=== PATIENT | male | born 1980 | race Caucasian/White ===

== ENCOUNTER 2017-08-20 17:57 | Emergency (ER) | payer BC ==
[~2017-08-20] VITALS: Ht 182.9 cm; Wt 95.3 kg
[2017-08-20 18:00] VITALS: BP 133/85
[2017-08-20] MEDS ORDERED: LORazepam Inj 2mg/ml 1ml IV ONE ×4 (18:30→23:15)
[2017-08-20 19:20] LABS: HEMATOCRIT 46.7 % (42.0-52.0); HEMOGLOBIN 16.1 G/DL (14.2-18.0); MEAN CORPUSCULAR VOLUME 90 FL (80-99); PLATELET COUNT 136 K/UL (150-450); RED BLOOD COUNT 5.18 M/UL (4.70-6.10)
[2017-08-20 19:38] LABS: ANION GAP 19 mmol/L (5-15); BLOOD UREA NITROGEN 13 mg/dL (7-18); CALCIUM 8.2 MG/DL (8.5-10.1); CARBON DIOXIDE 22 MMOL/L (21-32); CHLORIDE 94 MMOL/L (98-107); CREATININE 1.1 MG/DL (0.55-1.30); POTASSIUM 4.2 MMOL/L (3.5-5.1); SODIUM 135 MMOL/L (136-145)
[2017-08-20 19:45] LABS: ALANINE AMINOTRANSFERASE 169 U/L (12-78); ALBUMIN 4.1 G/DL (3.4-5.0); ALBUMIN/GLOBULIN RATIO 1.1 (1.0-2.7); ALKALINE PHOSPHATASE 138 U/L (46-116); ASPARTATE AMINO TRANSFERASE 240 U/L (15-37); BILIRUBIN,TOTAL 0.7 MG/DL (0.2-1.0)
[2017-08-20 20:00] VITALS: BP 124/106
[2017-08-20 22:00] VITALS: BP 131/83
--- NOTE | 2017-08-20 22:39 | Emergency Room Report ---
History of Present Illness General Chief Complaint: Alcohol Intoxication Source: Patient Present Illness HPI 37-year-old male presents ED for evaluation. Patient brought in by EMS status post EtOH intoxication. Found at home. Neighbor called 911. Patient appears tremulous. Admits to drinking consistently. Patient does not recall any head injury however there is a old laceration to his forehead. Denies any pain. Denies any drug use. Mother called as patient arrived to ED stating that patient is alcoholic and needs help. No other aggravating relieving factors. Denies any other associated symptoms Allergies: Coded Allergies: UNABLE TO ASSESS (Unverified , 08/20/17) Patient History Past Medical History: none Past Surgical History: none Pertinent Family History: none Social History: Reports: alcohol use; Denies: smoking, drug use Immunizations: UTD Reviewed Nursing Documentation: PMH: Agreed; PSxH: Agreed Nursing Documentation-PMH Past Medical History Deferred: Pt Cognitively Impaired Review of Systems All Other Systems: negative except mentioned in HPI Physical Exam Vital Signs Date Time Temp Pulse Resp B/P (MAP) Pulse Ox O2 Delivery O2 Flow Rate FiO2 08/20/17 17:33 98.4 113 18 127/84 97 Nasal Cannula 6.0 98.4 Sp02 EP Interpretation: reviewed, normal General Appearance: no apparent distress, alert, GCS 15, non-toxic Head: normocephalic, atraumatic Eyes: bilateral eye normal inspection, bilateral eye PERRL ENT: hearing grossly normal, normal pharynx, no angioedema, normal voice Neck: full range of motion, supple/symm/no masses Respiratory: chest non-tender, lungs clear, normal breath sounds, speaking full sentences Cardiovascular #1: regular rate, rhythm, no edema Cardiovascular #2: 2+ carotid (R), 2+ carotid (L), 2+ radial (R), 2+ radial (L) , 2+ dorsalis pedis (R), 2+ dorsalis pedis (L) Gastrointestinal: normal bowel sounds, non tender, soft, non-distended, no guarding, no rebound Rectal: deferred Genitourinary: normal inspection, no CVA tenderness Musculoskeletal: back normal, gait/station normal, normal range of motion, non- tender Neurologic: alert, oriented x3, responsive, motor strength/tone normal, sensory intact, speech normal, other - tremulous Psychiatric: judgement/insight normal, memory normal, mood/affect normal, no suicidal/homicidal ideation, anxious Reflexes: 3+ bicep (R), 3+ bicep (L), 3+ tricep (R), 3+ tricep (L), 3+ knee (R) , 3+ knee (L) Skin: normal color, no rash, warm/dry, well hydrated Lymphatic: no adenopathy Medical Decision Making Diagnostic Impression: Primary Impression: Acute alcoholic intoxication Qualified Codes: F10.929 - Alcohol use, unspecified with intoxication, unspecified Additional Impression: Alcohol withdrawal Qualified Codes: F10.230 - Alcohol dependence with withdrawal, uncomplicated ER Course Hospital Course 37-year-old male presents ED complaining of shaking, h/o alcohol abuse Differential diagnoses include: Alcohol intoxication, drug abuse, opioid withdrawal, alcohol withdrawal, dehydration, drug seeking behavior Clinical course Patient placed on stretcher. On groundwater monitoring technician. After initial history and physical I ordered labs, IV fluids, Ativan, CT head Labs reviewed-electrolytes okay, hemoglobin/hematocrit stable, no leukocytosis, alcohol level > 500, LFTS elevated, UTox + BZs CT head negative Patient given multiple rounds of Ativan. remains tremulous. Case discussed with Dr. Gunderson and he agreed to except the patient to his service for further care and support i. I feel this is a highly complex case requiring extensive working including EKG/Rhythm strip, Xray/CT/US, Blood/urine lab work, repeat exams while in ED, and administration of strong opiates/narcotics for pain control, admission to hospital or close patient follow up. Diagnosis - alcohol withdrawal Admitted to telemetry in serious condition Labs Test 08/20/17 18:50 08/20/17 18:55 White Blood Count 13.0 K/UL (4.8-10.8) Red Blood Count 5.18 M/UL (4.70-6.10) Hemoglobin 16.1 G/DL (14.2-18.0) Hematocrit 46.7 % (42.0-52.0) Mean Corpuscular Volume 90 FL (80-99) Mean Corpuscular Hemoglobin 31.2 PG (27.0-31.0) Mean Corpuscular Hemoglobin Concent 34.6 G/DL (32.0-36.0) Red Cell Distribution Width 12.0 % (11.6-14.8) Platelet Count 136 K/UL (150-450) Mean Platelet Volume 7.5 FL (6.5-10.1) Neutrophils (%) (Auto) % (45.0-75.0) Lymphocytes (%) (Auto) % (20.0-45.0) Monocytes (%) (Auto) % (1.0-10.0) Eosinophils (%) (Auto) % (0.0-3.0) Basophils (%) (Auto) % (0.0-2.0) Differential Total Cells Counted 100 Neutrophils % (Manual) 85 % (45-75) Lymphocytes % (Manual) 11 % (20-45) Monocytes % (Manual) 4 % (1-10) Eosinophils % (Manual) 0 % (0-3) Basophils % (Manual) 0 % (0-2) Band Neutrophils 0 % (0-8) Platelet Estimate Decreased Platelet Morphology Normal Red Blood Cell Morphology Normal Sodium Level 135 MMOL/L (136-145) Potassium Level 4.2 MMOL/L (3.5-5.1) Chloride Level 94 MMOL/L (98-107) Carbon Dioxide Level 22 MMOL/L (21-32) Anion Gap 19 mmol/L (5-15) Blood Urea Nitrogen 13 mg/dL (7-18) Creatinine 1.1 MG/DL (0.55-1.30) Estimat Glomerular Filtration Rate > 60 mL/min (>60) Glucose Level 195 MG/DL (74-106) Calcium Level 8.2 MG/DL (8.5-10.1) Total Bilirubin 0.7 MG/DL (0.2-1.0) Aspartate Amino Transf (AST/SGOT) 240 U/L (15-37) Alanine Aminotransferase (ALT/SGPT) 169 U/L (12-78) Alkaline Phosphatase 138 U/L (46-116) Total Protein 7.7 G/DL (6.4-8.2) Albumin 4.1 G/DL (3.4-5.0) Globulin 3.6 g/dL Albumin/Globulin Ratio 1.1 (1.0-2.7) Salicylates Level 3.5 ug/mL (2.8-20) Acetaminophen Level < 2 MCG/ML (10-30) Serum Alcohol 542 mg/dL Urine Opiates Screen Negative (NEGATIVE) Urine Barbiturates Screen Negative (NEGATIVE) Phencyclidine (PCP) Screen Negative (NEGATIVE) Urine Amphetamines Screen Negative (NEGATIVE) Urine Benzodiazepines Screen Positive (NEGATIVE) Urine Cocaine Screen Negative (NEGATIVE) Urine Marijuana (THC) Screen Negative (NEGATIVE) CT/MRI/US Diagnostic Results CT/MRI/US Diagnostic Results : Imaging Test Ordered: CT Head Impression no acute process Last Vital Signs Date Time Temp Pulse Resp B/P (MAP) Pulse Ox O2 Delivery O2 Flow Rate FiO2 08/20/17 17:33 98.4 113 18 127/84 97 Nasal Cannula 6.0 98.4 Status: improved Disposition: ADMITTED INPATIENT Condition: Serious Referrals: NOT CHOSEN IPA/,REFERRING (PCP) Bishop Schwarz MD Aug 20, 2017 22:39
[2017-08-20 23:26] VITALS: BP 132/87
[2017-08-20] MEDS ORDERED: Sodium Chloride 500ML 550 ML IV SCH (23:45)
[2017-08-21] MEDS ORDERED: LORazepam Inj 2mg/ml 1ml IV PRN
[2017-08-21 00:50] VITALS: BP 133/79
[2017-08-21 00:55] VITALS: BP 132/87
--- NOTE | 2017-08-21 10:24 | Diagnostic Imaging Report ---
Indication: Altered mental status Technique: Contiguous 5 mm thick transaxial imaging of the head obtained in a Siemens Sensation [address] scanner. Soft tissue and bone windows generated. Automatic Exposure Control was utilized. Total Dose length Product (DLP): 1404.[address] Dose Index Volume (CTDIvol): 70.38 mGy Comparison: none Findings: The size and configuration of the cortical sulci, basal cisterns, and ventricles are within normal limits for age. There is no mass effect, midline shift, or edema identified. There is no evidence of acute hemorrhage or abnormal intra-axial or extra-axial fluid collections. The bones and soft tissues are unremarkable. Impression: No mass effect, edema or acute bleed. [facility] has communicated the preliminary results to the Emergency Department. Their findings are largely concordant with this report. The CT scanner at [facility] is accredited by the [employer] [place] [employer] and the scans are performed using dose optimization techniques as appropriate to a performed exam including Automatic Exposure control.
== END 2017-08-21 00:55 | disposition left against medical advice (07) ==
LOC: EDBD 17:57 → EMR 18:47
DX: F10.229 Alcohol dependence with intoxication, unspecified (principal); F10.239 Alcohol dependence with withdrawal, unspecified; Y90.8 Blood alcohol level of 240 mg/100 ml or more
CPT/HCPCS: 36415; 70450; 80053; 80307; 85007; 85025; 99284; G0480; 80329

== ENCOUNTER 2017-11-05 21:09 | Emergency (ER) | payer BC ==
[~2017-11-05] VITALS: Ht 172.7 cm; Wt 74.8 kg
--- NOTE | 2017-11-05 21:24 | Emergency Room Report ---
History of Present Illness General Chief Complaint: Alcohol Intoxication Source: Patient (NasriLadarius AREVALO) Present Illness HPI Patient presents with paramedics Patient himself is difficult to arouse History of present illness is limited and obtained mainly from concrete technician report Patient also here with placed apartment Patient had been drinking heavily apparently reported to the family of suicidal thoughts And has been placed on a 5150 I do see previous presentation with alcohol abuse in August There was no reports of active vomiting or diarrhea And otherwise the history continues to be limited currently (Ladarius Best DO) Allergies: Coded Allergies: UNABLE TO ASSESS (Unverified , 08/20/17) Patient History Past Medical History: see triage record Pertinent Family History: none Reviewed Nursing Documentation: PMH: Agreed; PSxH: Agreed (Ladarius Best DO) Nursing Documentation-PMH History Of Psychiatric Problem: Yes (Ladarius Best DO) Review of Systems All Other Systems: negative except mentioned in HPI (Ladarius Best DO) Physical Exam Vital Signs Date Time Temp Pulse Resp B/P (MAP) Pulse Ox O2 Delivery O2 Flow Rate FiO2 11/05/17 21:04 97.8 102 18 122/76 98 Room Air 97.9 Sp02 EP Interpretation: reviewed, normal General Appearance: no apparent distress Head: normocephalic, atraumatic Eyes: bilateral eye PERRL, bilateral eye EOMI ENT: normal pharynx, no angioedema Neck: full range of motion, supple Respiratory: lungs clear Cardiovascular #1: regular rate, rhythm, no edema Gastrointestinal: non tender, soft Musculoskeletal: other - Patient does not follow all commands appropriately however, no obvious focal deficit Neurologic: responsive - 2 physical stimuli maintaining appropriate gag reflex and airway Skin: normal color, no rash Lymphatic: no adenopathy (Ladarius Best DO) Medical Decision Making Diagnostic Impression: Primary Impression: Acute alcoholic intoxication Additional Impression: History of suicidal ideation ER Course Patient presents emergency department today complaining of feeling suicidal. Patient apparently was intoxicated and placed on 5150 by the police. Patient was seen by Dr. Ladarius Contreras and signed out to me for final disposition. I've also evaluated patient. Patient appears to be clinically sober at this time. Patient is demanding be discharged. I informed patient however he is under a 5158 require psychiatric evaluation before he can be discharged. Patient was agreeable did request some Ativan he was given some Ativan and a nicotine patch. Patient was feeling better. Patient then was evaluated by our psychiatrist Dr. Montana. Dr. Montana felt that patient's comments were made while he was intoxicated. Patient is back to baseline not suicidal or homicidal and not in immediate danger to self or others. Therefore patient be discharged. Patient does have partial custody of his children. Dr. Montana will discussed this incident with patient's ex- will also has custody of children to make sure that the patient does not have custody of the children while he was intoxicated. Patient is advised follow-up as an outpatient. Advised him to stop drinking.Patient is advised to follow up with primary doctor in 2-3 days and return the emergency room for any worsening symptoms and as needed. Labs Test 11/05/17 22:10 11/05/17 22:24 White Blood Count 9.2 K/UL (4.8-10.8) Red Blood Count 5.50 M/UL (4.70-6.10) Hemoglobin 16.8 G/DL (14.2-18.0) Hematocrit 48.4 % (42.0-52.0) Mean Corpuscular Volume 88 FL (80-99) Mean Corpuscular Hemoglobin 30.5 PG (27.0-31.0) Mean Corpuscular Hemoglobin Concent 34.7 G/DL (32.0-36.0) Red Cell Distribution Width 10.8 % (11.6-14.8) Platelet Count 213 K/UL (150-450) Mean Platelet Volume 7.1 FL (6.5-10.1) Neutrophils (%) (Auto) 68.9 % (45.0-75.0) Lymphocytes (%) (Auto) 25.3 % (20.0-45.0) Monocytes (%) (Auto) 4.8 % (1.0-10.0) Eosinophils (%) (Auto) 0.5 % (0.0-3.0) Basophils (%) (Auto) 0.5 % (0.0-2.0) Sodium Level 144 MMOL/L (136-145) Potassium Level 3.6 MMOL/L (3.5-5.1) Chloride Level 106 MMOL/L (98-107) Carbon Dioxide Level 27 MMOL/L (21-32) Anion Gap 11 mmol/L (5-15) Blood Urea Nitrogen 11 mg/dL (7-18) Creatinine 1.0 MG/DL (0.55-1.30) Estimat Glomerular Filtration Rate > 60 mL/min (>60) Glucose Level 103 MG/DL (74-106) Calcium Level 8.7 MG/DL (8.5-10.1) Total Bilirubin 1.7 MG/DL (0.2-1.0) Direct Bilirubin 0.3 MG/DL (0.0-0.3) Aspartate Amino Transf (AST/SGOT) 51 U/L (15-37) Alanine Aminotransferase (ALT/SGPT) 72 U/L (12-78) Alkaline Phosphatase 78 U/L (46-116) Total Protein 7.3 G/DL (6.4-8.2) Albumin 4.1 G/DL (3.4-5.0) Globulin 3.2 g/dL Albumin/Globulin Ratio 1.3 (1.0-2.7) Salicylates Level 0.4 ug/mL (2.8-20) Acetaminophen Level < 2 MCG/ML (10-30) Serum Alcohol 300 mg/dL Urine Opiates Screen Negative (NEGATIVE) Urine Barbiturates Screen Negative (NEGATIVE) Phencyclidine (PCP) Screen Negative (NEGATIVE) Urine Amphetamines Screen Negative (NEGATIVE) Urine Benzodiazepines Screen Positive (NEGATIVE) Urine Cocaine Screen Negative (NEGATIVE) Urine Marijuana (THC) Screen Positive (NEGATIVE) (Oliver Berger MD) Last Vital Signs Date Time Temp Pulse Resp B/P (MAP) Pulse Ox O2 Delivery O2 Flow Rate FiO2 11/05/17 21:04 97.8 102 18 122/76 98 Room Air 97.9 (Ladarius Best DO) Status: improved (Oliver Berger MD) Disposition: HOME, SELF-CARE Condition: Stable Ladarius Best DO Nov 05, 2017 21:24 Oliver Berger MD Nov 06, 2017 14:05
[2017-11-05 22:26] LABS: BASOPHILS % (AUTO) 0.5 % (0.0-2.0); EOSINOPHILS % (AUTO) 0.5 % (0.0-3.0); HEMATOCRIT 48.4 % (42.0-52.0); HEMOGLOBIN 16.8 G/DL (14.2-18.0); LYMPHOCYTES % (AUTO) 25.3 % (20.0-45.0); MEAN CORPUSCULAR VOLUME 88 FL (80-99); MONOCYTES % (AUTO) 4.8 % (1.0-10.0); NEUTROPHILS % (AUTO) 68.9 % (45.0-75.0); PLATELET COUNT 213 K/UL (150-450); RED CELL DISTRIBUTION WIDTH 10.8 % (11.6-14.8); WHITE BLOOD COUNT 9.2 K/UL (4.8-10.8)
[2017-11-05 22:33] LABS: ANION GAP 11 mmol/L (5-15); BLOOD UREA NITROGEN 11 mg/dL (7-18); CALCIUM 8.7 MG/DL (8.5-10.1); CARBON DIOXIDE 27 MMOL/L (21-32); CHLORIDE 106 MMOL/L (98-107); POTASSIUM 3.6 MMOL/L (3.5-5.1); SODIUM 144 MMOL/L (136-145)
[2017-11-05 22:44] LABS: ALANINE AMINOTRANSFERASE 72 U/L (12-78); ALBUMIN 4.1 G/DL (3.4-5.0); ALBUMIN/GLOBULIN RATIO 1.3 (1.0-2.7); ALKALINE PHOSPHATASE 78 U/L (46-116); ASPARTATE AMINO TRANSFERASE 51 U/L (15-37); BILIRUBIN,TOTAL 1.7 MG/DL (0.2-1.0)
[2017-11-05 22:50] LABS: BILIRUBIN,DIRECT 0.3 MG/DL (0.0-0.3)
[2017-11-05 23:54] VITALS: BP 122/76
[2017-11-06] MEDS ORDERED: LORazepam 1mg tab ORAL ONE ×2 (02:15→09:30)
[2017-11-06 07:13] VITALS: BP 120/72
[2017-11-06] MEDS ORDERED: LORazepam Inj 2mg/ml 1ml IV ONE (07:45)
[2017-11-06 10:24] VITALS: BP 125/76
[2017-11-06 12:22] VITALS: BP 156/84
--- NOTE | 2017-11-06 20:30 | Consultation ---
DATE OF CONSULTATION: 11/06/2017 HISTORY OF PRESENT ILLNESS: This is a 37-year-old male with a history of alcohol dependence, benzodiazepine dependence, and cannabis dependence, who was admitted to the hospital last night on a 5150 hold for danger to others. The friend called the detailer [employer] and stated that the patient has suicidal ideations. During the evaluation, the patient stated that his friend exaggerated his symptoms for the [employer] to come and take him to in an ER for detoxification. The patient's friend stated that he believes that this would help him to stop using alcohol. During the evaluation, the patient is not endorsing any psychotic or manic symptoms. His system is positive for alcohol, marijuana, and benzodiazepine. He has a psychiatrist that he sees in a clinic. He stated that he has a business divorce and the has a full custody of the children. The ER called the ex- and notified the ex- of the patient's current situation. PAST PSYCHIATRIC HISTORY: The patient has a history of anxiety disorder. PAST MEDICAL HISTORY: Not significant. ALLERGIES: No known drug allergies. SUBSTANCE ABUSE HISTORY: Significant for alcohol, marijuana, and benzodiazepines. MENTAL STATUS EXAMINATION: The patient is alert and oriented times self, place, and situation he is in. Mood is neutral. Affect is full range. Congruent with mood. Thought process is linear. Thought content, no suicidal or homicidal ideations. No psychotic symptoms. Insight and judgment is fair. ASSESSMENT: AXIS I Alcohol dependence, benzodiazepine dependence, cannabis dependence, and polysubstance dependence. AXIS II Deferred. AXIS III As above. AXIS IV Low. AXIS V Global assessment of functioning is 20. The patient also has anxiety disorder. PLAN: 1. The patient's hold will be discontinued as he is not an imminent danger to self or others. 2. The patient will be discharged to a lower level of care and will follow up with a psychiatrist. 3. The substance use disorder resources were given to the patient. Chandrakant Montana M.D. DR: CORWIN JOB#: [id number] CC:
== END 2017-11-06 12:22 | disposition home or self-care (01) ==
LOC: EDBD 21:09 → EMR 21:48
DX: F10.929 Alcohol use, unspecified with intoxication, unspecified (principal); Z91.5 Personal history of self-harm
CPT/HCPCS: 36415; 80053; 80307; 82248; 85025; 96361; 96374; 99285; G0480; 80329